=== PATIENT | female | born 1985 | race Caucasian/White ===

== ENCOUNTER 2021-08-27 06:43 | Inpatient (IN) | payer BC ==
[~2021-08-27] VITALS: Ht 162.6 cm; Wt 67.1 kg
[2021-08-27] MEDS ORDERED: PRENATAL VITAM1 EAC5 PO (07:29)
[2021-08-27 07:41] LABS: HEMOGLOBIN 11.8 gm/dl (12.3-15.3); RED BLOOD COUNT 4.1 M/UL (4.00-5.10); WHITE BLOOD COUNT 11.2 K/UL (4.5-11.0)
[2021-08-27] MEDS ORDERED: IBUPROFEN600 MG PO (09:54)
[2021-08-27] MEDS ORDERED: HYDROCODON-ACE1 EAC6 PO (09:54)
[2021-08-27] MEDS ORDERED: COLACE 100MG C100 MG PO (09:54)
[2021-08-28 04:13] LABS: HEMOGLOBIN 8.4 gm/dl (12.3-15.3)
[2021-08-28] MEDS ORDERED: FERROUS SULFAT325 M2 PO (09:32)
== END 2021-08-29 15:09 | disposition home or self-care (01) | DRG 788 ==
LOC: OB 06:43
PROVIDERS: ADMIT Obstetrics & Gynecology
PROC: 10D00Z1 Extraction of Products of Conception, Low, Open Approach (ICD-10-PCS; 2021-08-27)
PROC: 3E0234Z Introduction of Serum, Toxoid and Vaccine into Muscle, Percutaneous Approach (ICD-10-PCS; principal; 2021-08-27 07:30)
PROC: 4A1HXCZ Monitoring of Products of Conception, Cardiac Rate, External Approach (ICD-10-PCS; principal; 2021-08-27 07:30)
DX: O34.211 Maternal care for low transverse scar from previous cesarean delivery (principal); Z3A.39 39 weeks gestation of pregnancy; Z37.0 Single live birth; Z20.822 Contact with and (suspected) exposure to COVID-19; D64.9 Anemia, unspecified; O90.81 Anemia of the puerperium; Z80.3 Family history of malignant neoplasm of breast; Z90.49 Acquired absence of other specified parts of digestive tract; Z23 Encounter for immunization
CPT/HCPCS: 36415; 81001; 82800; 85014; 85018; 85025; 90471; 90715; C9113; J0690; J1885; J2274; J2370; J2405; J2590; J3010; J7120; U0002